=== PATIENT | female | born 1960 | race Caucasian/White ===

== ENCOUNTER 2017-07-08 03:41 | Inpatient (IN) | payer OTHER ==
[~2017-07-08] VITALS: Ht 152.4 cm; Wt 67.5 kg
--- NOTE | ~2017-07-08 | HC ---
[facility] [place] [address] CONSULTATION Name: PROSPER ANGLIN Room #: 312-P [facility] IN M.R.#: [id number] Admission: 07/08/17 Attend Phys: Radha Matthews Discharge: 07/09/17 Date of : 62 Report #: [id number] THIS REPORT FOR: //name// CC: Js Fraser MD [facility] Sloan Griffin BRIEF HISTORY: The patient is a 56-year-old woman who presents with atypical chest pain and transfer from [facility]. HISTORY OF PRESENT ILLNESS: This patient is known to Dr. Fraser and stents were placed about a year ago. She has developed increasing chest pain with a sensation of heaviness in her chest, radiating to her neck. She was seen by Dr. Fraser had cardiac catheterization, which revealed wide open stents without significant change in the past year. I spoke to him on the phone and he does not think this is cardiac in etiology. The patient has a history of GI problems. I do not get a history of definite reflux, but she does take omeprazole 40 mg daily. She also notes intermittent dysphagia for solids and occasionally for liquids. She did have an upper endoscopy in [place] earlier this year and she was told she had a hiatus hernia. PAST MEDICAL HISTORY: She had high blood pressure, chronic obstructive pulmonary disease and continues to smoke. She has a history of fibromyalgias. She has had radial keratotomy, milk duct excision secondary to mastitis in the past, hysterectomy and embolization of a cerebral aneurysm and asthma. ALLERGIES: CEPHALEXIN, TRAMADOL, QUESTIONABLY MORPHINE and SULFA. HOME MEDICATIONS: Include hydrocodone every 6-8 hours as needed, albuterol inhaler for shortness breath as needed, alprazolam 0.5 mg 3 times daily, aspirin 325 mg daily, atorvastatin 40 mg daily, vitamin B12 at 1000 mcg monthly, Prozac 20 mg daily, Flonase nasal spray daily, lisinopril 10 mg daily, loratadine 10 mg daily, meclizine 25 mg twice daily, nitroglycerin as needed, omeprazole 40 mg daily, Effient 10 mg daily, Inderal 20 mg twice daily, Topamax 150 mg b.i.d. and trazodone 150 mg at bedtime. FAMILY HISTORY: No family history of colon cancer. SOCIAL HISTORY: , lives with her . She continues to smoke at a rate of 2 packs per day and has done so for over 30 years. She drinks alcohol on occasion. REVIEW OF SYSTEMS: GENERAL: No change in weight. No fever or chills. CENTRAL NERVOUS SYSTEM: No weakness, numbness or loss of consciousness. She had an aneurysm clipped 10 years ago as she was having headaches [place] [address] CONSULTATION Name: PROSPER ANGLIN Room #: 312-P [facility] IN M.R.#: [id number] Admission: 07/08/17 Attend Phys: Radha Matthews Discharge: 07/09/17 Date of : 62 Report #: [id number] also had an aneurysm. PULMONARY: Problems with wheezing and asthma. She continues to smoke. CARDIOVASCULAR: Coronary artery disease with previous stents, stable cardiac catheterization. GASTROINTESTINAL: Chest pain. She also has bouts of diarrhea. PHYSICAL EXAMINATION: VITAL SIGNS: A well-developed, well-nourished, overweight woman in no acute distress. HEENT: Anicteric. Pupils equal and round. Oropharynx clear. NECK: Supple. CHEST: Good breath sounds. Few scattered wheezes. HEART: Regular rate and rhythm, S1 and S2. ABDOMEN: Overweight. Normal bowel sounds. Soft, nontender, without hepatosplenomegaly or masses. EXTREMITIES: Without cyanosis, clubbing or edema. LABORATORY DATA: White count of 4.2, hemoglobin of 10 and MCV of 97. Creatinine 0.9 and BUN of 12. Troponin less than 0.4. ASSESSMENT: 1. Atypical chest pain. 2. Chronic obstructive pulmonary disease, continues to smoke. 3. High blood pressure. 4. History of cerebral aneurysm, status post clipping. 5. Dysphagia for solids. 6. Anemia, normochromic. Note of recent colonoscopy, at which point, she was told she had polyps. PLAN: 1. Upper endoscopy to evaluate atypical chest pain. 2. Anemia, to follow up with her primary for further evaluation of that problem. 3. Esophageal dilation. 4. Follow up on ultrasound of the abdomen, which was obtained earlier today, but results are not yet available. <ELECTRONICALLY SIGNED> By: Mars Eubanks MD 07/10/17 1547 1225 1416 Mars Eubanks MD /nt
--- NOTE | ~2017-07-08 | S ---
[facility] [address] [place] [address] SURGICAL PATH RPT PROCEDURE Name: PROSPER ANGLIN Room #: 312-P [facility] IN M.R.#: [id number] Admission: 07/08/17 Date of : 62 Discharge: 07/09/17 Report #: [id number] Path Case #: [id number] PATHOLOGY REPORT DRAFT COLLECTION DATE: 07/09/2017 RECEIVED DATE: 07/09/2017 SPECIMEN(S) RECEIVED: A.Biopsies of gastritis-stomach
--- NOTE | ~2017-07-08 | P ---
[facility] [place] [address] PROCEDURE REPORT Name: PROSPER ANGLIN Room #: 312-P [facility] IN M.R.#: [id number] Admission: 07/08/17 Attend Phys: Radha Matthews Discharge: 07/09/17 Date of : 62 Report #: [id number] THIS REPORT FOR: //name// CC: Js Fraser MD [facility] Sloan Griffin BRIEF HISTORY: The patient is a 56-year-old woman with atypical chest pain. Cardiac cath today reveals that her previous placed stents are wide open. PREOPERATIVE DIAGNOSIS: Atypical chest pain. POSTOPERATIVE DIAGNOSES: 1. Diffuse erythematous gastritis. 2. Small hiatus hernia. 3. Dysphagia. MEDICATIONS: Deep sedation with propofol per anesthesia. SPECIMEN: Biopsies of gastritis. ESTIMATED BLOOD LOSS: 3 mL. PROCEDURE: EGD with biopsy and Melendrez dilation. FINDINGS: Prior to propofol sedation, procedure of upper endoscopy was discussed with the patient as well as potential risks, benefits, and complications. She indicates she understands and desires to proceed. With the patient in left lateral decubitus position, the [employer] video endoscope was inserted in the cervical esophagus under direct vision without difficulty. Examination of this organ through its entire length revealed normal esophageal mucosa throughout. No evidence of ulcers, erosions, or esophagitis. In addition, a small sliding type hiatus hernia was seen. Mucosa and hernia was unremarkable. Scope was advanced into the stomach, which was examined on end view as well as retroflexed views. There was a pattern of a diffuse gastritis. There was diffuse erythema. No ulcers or erosions were seen. Biopsies were obtained to evaluate for H. pylori. Upon retroflexion, the hiatus hernia was seen. No other abnormalities were identified. The pylorus, duodenal bulb, and postbulbar sweep were inspected and noted to be within normal limits. At that point, the scope was slowly withdrawn and careful circumferential views were obtained. The patient tolerated the procedure well. Subsequently, she was dilated with passage of a 52-[place] Melendrez dilator due to dysphagia. I did not see a stricture ring, but she was dilated based on symptoms. [facility] [address] [place] [address] PROCEDURE REPORT Name: PROSPER ANGLIN Room #: 312-P [facility] IN M.R.#: [id number] Admission: 07/08/17 Attend Phys: Radha Matthews Discharge: 07/09/17 Date of : 62 Report #: [id number] DISPOSITION: The patient with atypical chest pain. I spoke with Dr. Fraser who feels that her coronaries and stents are stable and this is not cardia in etiology. I do not find a definite lesion. However, she could have nonerosive reflux disease. She is currently taking omeprazole; we will have her continue using a PPI and she may take pantoprazole 40 mg twice daily for at least 4 weeks, if she is no better after 4 weeks, then reducing back to 1 daily would be appropriate. Discontinue smoking would be helpful as well. We will follow up on ultrasound of the gallbladder, which has been done, but not yet reported. Gallstone is the potential etiology of her atypical chest pain. If the ultrasound is negative, a PIPIDA scan would be consideration, potentially an outpatient. <ELECTRONICALLY SIGNED> By: Mars Eubanks MD 07/10/17 1547 1242 1432 Mars Eubanks MD /nt
--- NOTE | ~2017-07-08 | CATHLAB ---
[facility] [address] [place] [address] INVASIVE PROCEDURE REPORT Name: PROSPER ANGLIN Room #: 312-P ADM IN M.R.#: [id number] Admission: 07/08/17 Attend Phys: Radha Grajeda Discharge: Date of : 62 Date of Service: 07/09/17 1718 Report #: [id number] THIS REPORT FOR: //name// APPROVED REPORT Patient Details Patient Status: In-Patient Room #: 210 The patient is a 56 year-old female Event Personnel Js Fraser Truck Technician, Ines Ibarra RN RN, Yon Cruz RN, Jewels Sousa, Bryan Gonzalez Monitor Procedures Performed Left Heart Cath w/or w/o Coronaries [id number] [facility] Procedure Narrative The Right Groin^ was infiltrated with 1% Lidocaine subcutaneous anesthesia. A PINNACLE 6FR Sheath #[id number] sheath was inserted into the RFA^. Coronary angiography was performed using coronary diagnostic catheters. The right coronary system was accessed and visualized with a JR4 catheter. The left coronary system was accessed and visualized with a JL4 catheter. The left ventricle was accessed and visualized with a PIGTAIL catheter. Left ventriculogram was performed in 30 degree projection. An aortogram of the abdominal aorta was performed. Closure device was deployed with a 6 Fr MYNXGRIP 6/7F #[id number]. The patient tolerated the procedure well and there were no complications associated with the procedure. There was no hematoma. Intraoperative Conscious Sedation Sedation start time: 7:43 Case end Time: 7:53 Fentanyl 50 mcg Versed 1 mg Fluoro Time: 1.26 minutes Dose: 321 mGy Contrast Type and Amount: Omnipaque 125 ml Hemodynamics The aortic pressure is 143/52 mmHg with a mean of 55 mmHg. The left ventricular pressure is 149/14 mmHg with a mean of mmHg. The left ventricular end diastolic pressure is 27 mmHg. [facility] [place] [address] INVASIVE PROCEDURE REPORT Name: PROSPER ANGLIN Room #: 312-P [facility] IN M.R.#: [id number] Admission: 07/08/17 Attend Phys: Radha Grajeda Discharge: Date of : 62 Date of Service: 07/09/17 1718 Report #: [id number] Conclusion #1 normal left ventricular size and systolic function EF 60% #2 abdominal aorta with mildly ectatic mild calcificationof getting aneurysm or stenosis renal arteries are patent. #3 left main mildly disease giving rise to LAD and circumflex 4 LAD mild diffuse disease extends to the apex #5 small nondominant circumflex with mild disease #6 dominant right with an eccentric 3040% irregularities and then a proximal mid and mid distal stents widely patent diffuse disease distally no evidence for indication for intervention Recommendations and plan aggressive risk factor modification continue current therapy DC Effient patient is now one year post RCA stent placement. No lifting for 48 hours no line tub Jacuzzi or Ernst for a week. Recommend GI evaluation for either gastritis or possible gallbladder etiology of this pain. <ELECTRONICALLY SIGNED> By: Js Fraser MD, FACC 07/09/17 1718 17 17 Js Fraser MD, FACC /INF
--- NOTE | ~2017-07-08 | EKG ---
[place] [address] [facility] [place] [address] ELECTROCARDIOGRAM REPORT Name: PROSPER ANGLIN Room #: 312-P [facility] IN M.R.#: [id number] Admission: 07/08/17 Attend Phys: Radha Matthews Discharge: 07/09/17 Date of : 62 Report #: [id number] THIS REPORT FOR: //name// [facility] Test Date: 2017-07-09 Test Time: 06:38:03 Pat Name: PROSPER ANGLIN Department: Room: [facility] Gender: F Track Rider: EDWAR : 1960 Requested By: Js Fraser Order Number: [id number] MD: Octavio Carlin Measurements Intervals [place] Rate: 74 P: 63 ID: 196 QRS: 55 QRSD: 90 T: 34 QT: 378 QTc: 420 Interpretive Statements Sinus rhythm No significant abnormality Compared to ECG 05/02/2016 07:26:22 No significant change was found Electronically Signed On 07-10-2017 10:03:16 CDT by Octavio Carlin [email or web address] <ELECTRONICALLY SIGNED> By: Octavio Carlin MD, [facility] 07/10/17 1003 0638 Octavio Carlin MD, [facility] /EPI
--- NOTE | ~2017-07-08 | HC ---
[facility] [place] [address] CONSULTATION Name: PROSPER ANGLIN Room #: 312-P [facility] IN M.R.#: [id number] Admission: 07/08/17 Attend Phys: Radha Matthews Discharge: 07/09/17 Date of : 62 Report #: [id number] THIS REPORT FOR: //name// CC: Sloan Matthews DATE OF SERVICE: 07/08/2017 REASON FOR CONSULTATION: Acute coronary syndrome. HISTORY OF PRESENT ILLNESS: This is a very pleasant 56-year-old female patient who was transferred from [facility] for assessment and evaluation of chest discomfort. The patient has a history of coronary artery disease, having undergone stenting by Dr. Fraser approximately 1 year ago. She states that she noticed tightness and squeezing recently, which has resolved on its own and normalized. On the day of admission, she stated that this discomfort became more prominent and it remained longer than before. It also radiated up into her neck and into her teeth where the teeth itself were hurting. She stated that her jaw was also quite uncomfortable and she developed some shortness of breath, although no nausea, vomiting or palpitations. She states that she has no orthopnea symptoms. She stated these symptoms all have been initially with activity, but now has progressed to the point that this occurs intermittently while at rest. ALLERGIES: CEPHALEXIN, TRAMADOL, MORPHINE, SULFA. PAST MEDICAL HISTORY: Significant for: 1. Coronary artery disease as stated above. 2. Dyslipidemia. 3. Acid peptic disease. 4. Seasonal rhinitis and allergies. 5. COPD. MEDICATIONS: At home are aspirin, albuterol inhaler, loratadine, meclizine, vitamin B12, albuterol sulfate solution, fluticasone. SOCIAL HISTORY: The patient continues to smoke. Consumes alcohol socially. Does not follow particular exercise regimen or dietary restriction. PAST MEDICAL HISTORY: Significant for: 1. Hypertension. 2. COPD. 3. Fibromyalgia. PAST SURGICAL HISTORY: 1. Embolization of cerebral aneurysm. [facility] [address] [place] [address] CONSULTATION Name: PROSPER ANGLIN Room #: 312-P [facility] IN M.R.#: [id number] Admission: 07/08/17 Attend Phys: Radha Matthews Discharge: 07/09/17 Date of : 62 Report #: [id number] 2. Radial keratotomy. 3. Milk duct excision secondary to mastitis 20 years ago. 4. Hysterectomy. She states she has REVIEW OF SYSTEMS: Except for the symptoms previously mentioned and those commensurate with comorbid state, the 10-point review of systems is negative. ELECTROCARDIOGRAM: Normal sinus rhythm, nonspecific ST-T wave changes. PHYSICAL EXAMINATION: GENERAL: Well-developed, well-nourished female resting comfortably in no acute distress. VITAL SIGNS: Noted and reviewed in the chart. HEENT: Normocephalic, atraumatic. Pupils are equal, round, reactive to light and accommodation. Extraocular muscles are intact. Sclerae and conjunctivae are anicteric. NECK: JVD is normal. Carotid upstrokes are bilaterally symmetrical. No bruits are heard. No thyromegaly. No lymphadenopathy. LUNGS: Clear to auscultation. No wheezes, rhonchi or crackles. No CVA tenderness. CARDIAC: Demonstrates a regular rhythm. Normal first and second heart sounds. No ventricular or atrial gallops, no rubs noted. No murmurs. No lifts or heaves, PMI normal. ABDOMEN: Soft, nontender, nondistended. Normal bowel sounds. EXTREMITIES: Without cyanosis, clubbing or edema. Distal pulses are intact. DTR symmetrical. NEUROLOGIC: Cranial nerves 2-12 are grossly normal and symmetrical. PSYCHIATRIC: Alert, oriented with normal affect. SKIN: Warm and dry. IMPRESSION: 1. Chest discomfort which is quite suspicious for an anginal equivalent. As she does have an increased risk based on those statements previously mentioned and in view of this, we are going to proceed directly to angiography in the a.m. The risks, complications, and alternatives to cath, angioplasty and conscious sedation were discussed with the patient. She voices understanding and wishes to proceed. 2. Dyslipidemia. Discussed [place] [employer] step-1 diet with her. She does voice understanding. 3. Tobacco abuse and dependence. I discussed the issues with smoking and early stent closure. She does seem to understand, but states it is quite difficult [address] [address] CONSULTATION Name: JUAN PABLOEdgarPROSPER Room #: 312-P [facility] IN M.R.#: [id number] Admission: 07/08/17 Attend Phys: Radha Matthews Discharge: 07/09/17 Date of : 62 Report #: [id number] and we sat down and delineated several methods and techniques that would optimize her smoking cessation. <ELECTRONICALLY SIGNED> By: Guillermo Barron MD 07/10/17 1315 2344 0159 Guillermo Barron MD /nt
[~2017-07-08 03:41] MED LIST: ACETAMINOPHEN-1 EAC1 PO; ALBUTEROL2.5 MG/31 INH; ANTIPYRINE-BENZOCAIN; ANTIVERT25 MG PO; ASPIRIN325 PO; ATORVASTATIN CA40 MG PO; B12INJ IM; EFFIENT10 MG PO; FLONASE 0.05%50 MCG NASAL; HYDROCODONE-AP1 EAC6 PO; LORATIDINE 10 M10 M1 PO; METOPROLOL SUCC25 M1 PO; NITROGLYCERIN0.4 MG SUBLING; OMEPRAZOLE40 MG PO; PROAIR RESPICL90 MCG IH; PROPRANOLOL 1010 MG PO; PROZAC20 MG PO; TOPAMAX 100 MG100 MG PO; TRAZODONE HCL50 MG PO; VITAMIN D250000 UNIT PO; XANAX 0.5 MG0.5 MG PO; ZESTRIL10 MG PO
[2017-07-08 08:50] VITALS: BP 126/64
[2017-07-08 09:10] LABS: HEMATOCRIT 35.8 % (37.0-47.0); HEMOGLOBIN 11.7 gm/dL (12.0-15.0); MCH 31.9 pg (26.0-34.0); MCHC 32.7 g/dL (28.0-37.0); MCV 97.7 fL (80.0-100.0); RBC 3.66 mil/uL (4.20-5.00); RDW 13.1 % (10.5-14.5); WBC 5.4 thou/uL (4.0-11.0)
[2017-07-08 09:20] LABS: ANION GAP 8 mmol/L (7-16); BUN 15 mg/dL (7-18); CALCIUM 8.2 mg/dL (8.5-10.1); CHLORIDE 108 mmol/L (98-107); CO2 28 mmol/L (21-32); CREATININE 1.2 mg/dL (0.6-1.0); GLUCOSE 87 mg/dL (74-106); POTASSIUM 3.9 mmol/L (3.5-5.1); SODIUM 144 mmol/L (136-145)
[2017-07-08 09:28] LABS: TROPONIN-I < 0.04 ng/mL (<0.04-0.07)
[2017-07-08 11:45] VITALS: BP 107/52
[2017-07-08] MEDS ORDERED: ACETAMINOPHEN-1 EAC1 PO (12:51)
[2017-07-08 15:47] VITALS: BP 115/56
[2017-07-08 19:59] VITALS: BP 126/76
[2017-07-08 23:35] VITALS: BP 116/51
[2017-07-09] VITALS (9 sets, daily range): BP systolic 102–153; BP diastolic 42–74
[2017-07-09 06:15] LABS: HEMATOCRIT 30.2 % (37.0-47.0); MCH 32.1 pg (26.0-34.0); MCV 97.1 fL (80.0-100.0); RBC 3.11 mil/uL (4.20-5.00); RDW 13.1 % (10.5-14.5); WBC 4.2 thou/uL (4.0-11.0)
[2017-07-09 06:27] LABS: ANION GAP 6 mmol/L (7-16); BUN 12 mg/dL (7-18); CALCIUM 7.6 mg/dL (8.5-10.1); CHLORIDE 109 mmol/L (98-107); CHOLESTEROL 136 mg/dL (<200); CO2 24 mmol/L (21-32); CREATININE 0.9 mg/dL (0.6-1.0); GLUCOSE 96 mg/dL (74-106); HDL CHOLESTEROL 50 mg/dL (>40); LDL CHOLESTEROL 67 mg/dL (<100); POTASSIUM 3.9 mmol/L (3.5-5.1); SODIUM 139 mmol/L (136-145); TC:HDL 2.7 Ratio (Not establshd); TRIGLYCERIDE 96 mg/dL (<150); TROPONIN-I < 0.04 ng/mL (<0.04-0.07); VLDL 19 mg/dL (<40)
[2017-07-09] MEDS ORDERED: PROTONIX40 M1 PO (16:51)
== END 2017-07-09 18:30 | disposition home or self-care (01) | DRG 391 ==
LOC: 2N 03:41 → 3N 07-09 13:27
PROVIDERS: Hospitalist
DX: K29.70 Gastritis, unspecified, without bleeding (principal); I21.4 Non-ST elevation (NSTEMI) myocardial infarction; I24.9 Acute ischemic heart disease, unspecified; K44.9 Diaphragmatic hernia without obstruction or gangrene; I25.10 Atherosclerotic heart disease of native coronary artery without angina pectoris; I10 Essential (primary) hypertension; J44.9 Chronic obstructive pulmonary disease, unspecified; F17.210 Nicotine dependence, cigarettes, uncomplicated; D64.9 Anemia, unspecified; E78.00 Pure hypercholesterolemia, unspecified; J30.2 Other seasonal allergic rhinitis; E78.5 Hyperlipidemia, unspecified; Z90.710 Acquired absence of both cervix and uterus; Z95.5 Presence of coronary angioplasty implant and graft; Z88.8 Allergy status to other drugs, medicaments and biological substances
CPT/HCPCS: 10081; 62110; 62900; 70005

== ENCOUNTER 2018-02-20 10:16 | Emergency (ER) | payer OTHER ==
[~2018-02-20] VITALS: Ht 152.4 cm; Wt 56.7 kg
[~2018-02-20 10:16] MED LIST changes: +PROTONIX40 M1 PO
[2018-02-20] MEDS ORDERED: XANAX 0.5 MG0.5 MG PO (10:46)
[2018-02-20] MEDS ORDERED: ZANAFLEX4 MG PO (10:46)
[2018-02-20] MEDS ORDERED: BUTRANS1 EAC1 TRANSDERM (10:46)
[2018-02-20] MEDS ORDERED: COZAAR 50 MG TA50 M2 PO (10:46)
[2018-02-20] MEDS ORDERED: PERCOCET 5-3251 EACH PO (10:47)
[2018-02-20] MEDS ORDERED: MS CONTIN15 MG PO (11:53)
== END 2018-02-20 12:39 | disposition home or self-care (01) ==
LOC: ER 10:16
DX: M54.12 Radiculopathy, cervical region (principal); M25.511 Pain in right shoulder; I10 Essential (primary) hypertension; J44.9 Chronic obstructive pulmonary disease, unspecified; M79.7 Fibromyalgia; F17.210 Nicotine dependence, cigarettes, uncomplicated; Z88.1 Allergy status to other antibiotic agents; Z88.6 Allergy status to analgesic agent

== ENCOUNTER → 2020-01-12 | Outpatient (CLI) | payer OTHER ==
[~2020-01-12] MED LIST changes: +BUTRANS1 EAC1 TRANSDERM; +COZAAR 50 MG TA50 M2 PO; +MS CONTIN15 MG PO; +PERCOCET 5-3251 EACH PO; +ZANAFLEX4 MG PO
== END ==
LOC: SJCVC 12:35
DX: R94.31 Abnormal electrocardiogram [ECG] [EKG] (principal); I10 Essential (primary) hypertension; I25.10 Atherosclerotic heart disease of native coronary artery without angina pectoris; E78.00 Pure hypercholesterolemia, unspecified; I65.23 Occlusion and stenosis of bilateral carotid arteries; Z72.0 Tobacco use; Z79.82 Long term (current) use of aspirin; Z79.899 Other long term (current) drug therapy

== ENCOUNTER → 2020-06-18 | Outpatient (CLI) | payer OTHER | LOC: SJCVC 12:08 → SJCVCIMAG 12:08 | PROVIDERS: ATTEND Internal Medicine Cardiovascular Disease | DX: I08.3 Combined rheumatic disorders of mitral, aortic and tricuspid valves (principal); I11.9 Hypertensive heart disease without heart failure; R94.31 Abnormal electrocardiogram [ECG] [EKG]; I25.10 Atherosclerotic heart disease of native coronary artery without angina pectoris; E78.00 Pure hypercholesterolemia, unspecified; J44.9 Chronic obstructive pulmonary disease, unspecified; I73.9 Peripheral vascular disease, unspecified; I25.2 Old myocardial infarction; F17.210 Nicotine dependence, cigarettes, uncomplicated; Z79.899 Other long term (current) drug therapy; Z82.49 Family history of ischemic heart disease and other diseases of the circulatory system ==

== ENCOUNTER → 2020-06-23 | Outpatient (CLI) | payer OTHER | LOC: SJCVCIMAG 06:37 | PROVIDERS: ATTEND Internal Medicine Cardiovascular Disease | DX: R07.9 Chest pain, unspecified (principal); R06.00 Dyspnea, unspecified; I25.10 Atherosclerotic heart disease of native coronary artery without angina pectoris; I10 Essential (primary) hypertension; E78.5 Hyperlipidemia, unspecified; F17.200 Nicotine dependence, unspecified, uncomplicated; Z98.61 Coronary angioplasty status ==

== ENCOUNTER → 2020-09-24 | Outpatient (CLI) | payer OTHER | LOC: SJCVC 10:00 | PROVIDERS: ATTEND Internal Medicine Cardiovascular Disease | DX: R94.31 Abnormal electrocardiogram [ECG] [EKG] (principal); I25.10 Atherosclerotic heart disease of native coronary artery without angina pectoris; I77.9 Disorder of arteries and arterioles, unspecified; I48.91 Unspecified atrial fibrillation; E78.00 Pure hypercholesterolemia, unspecified; I10 Essential (primary) hypertension; J44.9 Chronic obstructive pulmonary disease, unspecified; F17.210 Nicotine dependence, cigarettes, uncomplicated; Z79.899 Other long term (current) drug therapy ==

== ENCOUNTER 2021-01-18 11:56 | Emergency (ER) | payer OTHER ==
[~2021-01-18] VITALS: Ht 152.4 cm; Wt 69.0 kg
[~2021-01-18 11:56] MED LIST changes: -DOXYCYCLINE 10100 MG PO
[2021-01-18 12:56] LABS: URINE BILIRUBIN NEGATIVE (Negative); URINE BLOOD NEGATIVE (Negative); URINE CLARITY CLEAR; URINE COLOR YELLOW; URINE GLUCOSE-RANDOM* NEGATIVE (Negative); URINE KETONES NEGATIVE (Negative); URINE LEUKOCYTES-REFLEX NEGATIVE (Negative); URINE NITRITE-REFLEX NEGATIVE (Negative); URINE PROTEIN (DIPSTICK) NEGATIVE (Negative); URINE UROBILINOGEN 0.2 E.U./dl (0.2-1.0)
[2021-01-18 13:07] LABS: ANION GAP 10 mmol/L (7-16); BASOPHILS 0.8 % (0.0-2.0); BUN 11 mg/dL (7-18); CALCIUM 8.6 mg/dL (8.5-10.1); CHLORIDE 103 mmol/L (98-107); CO2 26 mmol/L (21-32); CREATININE 1.2 mg/dL (0.6-1.0); EOSINOPHILS 1.4 % (0.0-3.0); GLUCOSE 95 mg/dL (74-106); HEMATOCRIT 35.5 % (37.0-47.0); HEMOGLOBIN 11.8 gm/dL (12.0-15.0); LYMPHOCYTES 23.1 % (24.0-44.0); MCH 28.7 pg (26.0-34.0); MCHC 33.1 g/dL (28.0-37.0); MCV 86.6 fL (80.0-100.0); MONOCYTES 6.4 % (1.0-8.0); PLATELET COUNT 314 thou/uL (150-400); POLYS 68.3 % (36.0-66.0); POTASSIUM 4.5 mmol/L (3.5-5.1); RDW 16.5 % (10.5-14.5); SODIUM 139 mmol/L (136-145); WBC 7.3 thou/uL (4.0-11.0)
[2021-01-18 13:18] LABS: ALBUMIN 3.6 g/dL (3.4-5.0); DIRECT BILIRUBIN < 0.1 mg/dL (<0.1-0.2); LIPASE 75 U/L (73-393); SGOT 18 U/L (15-37); SGPT 17 U/L (14-59); TOTAL BILIRUBIN 0.3 mg/dL (0.2-1.0); TOTAL PROTEIN 6.8 g/dL (6.4-8.2); TROPONIN-I <0.06 ng/mL (<0.06)
[2021-01-18] MEDS ORDERED: DOXYCYCLINE 10100 MG PO (15:04)
[2021-01-18 15:19] VITALS: BP 132/58
--- NOTE | 2021-01-18 15:27 | EKG ---
[address] [address] ELECTROCARDIOGRAM REPORT Name: PROSPER ANGLIN [facility] [id number] Admission: 01/18/21 Attend Phys: Discharge: 01/18/21 Date of : 62 Report #: [id number] [facility] ED Test Date: 2021-01-18 Test Time: 13:25:11 Pat Name: PROSPER ANGLIN Department: Room: Gender: F Piece Dyer: kf : 1960 Requested By: Phuc Valencia Order Number: [id number] MD: Adis Dejesus Measurements Intervals [place] Rate: 81 P: 78 OR: 178 QRS: 74 QRSD: 87 T: 65 QT: 379 QTc: 440 Interpretive Statements Sinus rhythm Compared to ECG 07/09/2017 06:38:03 No significant changes Electronically Signed On 01-18-2021 15:27:38 ASSISTANT BUYER by Adis Dejesus [email or web address] <ELECTRONICALLY SIGNED> By: Adis Dejesus MD, [facility] 01/18/21 1527 1325 1325 Adis Dejesus MD, FACC /EPI
== END 2021-01-18 15:21 | disposition home or self-care (01) ==
LOC: ER 11:56
PROVIDERS: Nurse Practitioner
DX: J44.1 Chronic obstructive pulmonary disease with (acute) exacerbation (principal); I10 Essential (primary) hypertension; J44.9 Chronic obstructive pulmonary disease, unspecified; Z90.710 Acquired absence of both cervix and uterus; F17.210 Nicotine dependence, cigarettes, uncomplicated; Z79.82 Long term (current) use of aspirin; Z79.899 Other long term (current) drug therapy; Z88.8 Allergy status to other drugs, medicaments and biological substances; Z20.822 Contact with and (suspected) exposure to COVID-19

== ENCOUNTER → 2021-01-18 | Outpatient (CLI) | payer OTHER ==
[~2021-01-18] MED LIST changes: +DOXYCYCLINE 10100 MG PO
== END ==
LOC: CAT 01-04 16:00
PROVIDERS: ATTEND Internal Medicine
DX: Z12.2 Encounter for screening for malignant neoplasm of respiratory organs (principal); J84.10 Pulmonary fibrosis, unspecified; I25.10 Atherosclerotic heart disease of native coronary artery without angina pectoris; Z87.891 Personal history of nicotine dependence

== ENCOUNTER 2021-02-13 17:27 | Inpatient (IN) | payer OTHER ==
[~2021-02-13] VITALS: Ht 152.4 cm; Wt 78.6 kg
[~2021-02-13 17:27] MED LIST changes: +DOXYCYCLINE 10100 MG PO
[2021-02-13 20:46] VITALS: BP 104/42
[2021-02-13] MEDS ORDERED: NEURONTIN600 MG PO (21:14)
[2021-02-13] MEDS ORDERED: LOPRESSOR50 MG PO (21:16)
[2021-02-13 21:17] LABS: HEMATOCRIT 33.3 % (37.0-47.0); HEMOGLOBIN 10.8 gm/dL (12.0-15.0); MCHC 32.3 g/dL (28.0-37.0); MCV 86.7 fL (80.0-100.0); RBC 3.84 mil/uL (4.20-5.00); RDW 16.5 % (10.5-14.5); WBC 7.4 thou/uL (4.0-11.0)
[2021-02-13] MEDS ORDERED: PROZAC20 MG PO (21:17)
[2021-02-13] MEDS ORDERED: MELOXICAM15 MG PO (21:18)
[2021-02-13] MEDS ORDERED: OMEPRAZOLE40 MG PO (21:20)
[2021-02-13] MEDS ORDERED: SYMBICORT160 MCG/4. INH (21:23)
[2021-02-13] MEDS ORDERED: OXYBUTYNIN CHLO10 MG PO (21:25)
[2021-02-13] MEDS ORDERED: NORVASC5 MG PO (21:28)
[2021-02-13] MEDS ORDERED: ROSUVASTATIN CA20 MG PO (21:29)
[2021-02-13 21:30] LABS: PROTIME 10.7 Seconds (9.3-11.4)
[2021-02-13] MEDS ORDERED: MOTION SICKNESS25 M4 PO (21:31)
[2021-02-13] MEDS ORDERED: BREZTRI AEROS10.7 GM INH (21:35)
[2021-02-13 23:42] VITALS: BP 104/41
[2021-02-14] VITALS (17 sets, daily range): BP systolic 98–152; BP diastolic 35–65
[2021-02-14 03:45] LABS: HEMATOCRIT 31.9 % (37.0-47.0); MCH 27.8 pg (26.0-34.0); MCHC 31.5 g/dL (28.0-37.0); MCV 88.3 fL (80.0-100.0); RBC 3.61 mil/uL (4.20-5.00); RDW 16.9 % (10.5-14.5); WBC 5.6 thou/uL (4.0-11.0)
[2021-02-14 03:57] LABS: ANION GAP 4 mmol/L (7-16); BUN 27 mg/dL (7-18); CALCIUM 8.1 mg/dL (8.5-10.1); CHLORIDE 104 mmol/L (98-107); CO2 30 mmol/L (21-32); CREATININE 1.7 mg/dL (0.6-1.0); GLUCOSE 107 mg/dL (74-106); POTASSIUM 4.8 mmol/L (3.5-5.1); SODIUM 138 mmol/L (136-145)
[2021-02-14 04:06] LABS: TROPONIN-I <0.06 ng/mL (<0.06)
--- NOTE | 2021-02-14 04:31 | NUR ---
ADMITTED PER EMS FROM [facility] AT 2030. STATES CHEST PAIN HAS CONTINUED SINCE 1400 TODAY RATING 4-8. CHEST PAIN AT PRESENT 06/04. EMS STATED REMOVED NTG PASTE DUE TO LOW BP. LIZETTE EXECUTIVE CHAIRMAN NOTIFIED OF ARRIVAL AND ORDERS TO CONTINUE HEPARING GTT GIVEN. HEPARIN GTT RESTARTED PER PROTOCOL. UP WITH STANDBY ASSIST. ADMISSION PROCESS INITIATED AND COMPLETED. DR. ZHENG CONSULT CALLED AT 2255. ORDERS FOR IVF, GI COCKTAIL AND NTG PASTE RECIEVED AND IMPLEMENTED. ORIENTED TO ROOM AND FLOOR POLICIES. EXECUTIVE CHAIRMAN HERE AT 2130. 0130 PATIENT ASSISTED TO BSC AND VOIDED 190CC, BLADDER SCAN POST VOID SHOWN 27CC. NPO PAST MN FOR CARD WORKUP. 0200 MORPHINE 2MG GIVEN FOR CONTINUED CHEST PAIN. 0230 PATIENT SLEEPING WITHOUT PRESENT COMPLAINTS. CONTINUE TO ASSES CLOSELY. 0435 PATIENT REMAINS SLEEPING WITHOUT PRESENT COMPLAINTS AT THIS TIME. WORKING ON GOALS AND PLAN OF CARE FOR NOC. CONTINUE TO ASSES CLOSELY.
--- NOTE | 2021-02-14 06:42 | NUR ---
NOTIFIED CHIEF SUSTAINABILITY OFFICER OF URINE OUTPUT. NO NEW ORDERS. PATIENT SLEEPING WITHOUT PRESENT COMPLAINTS OF PAIN.
--- NOTE | 2021-02-14 07:26 | EKG ---
[address] [address] ELECTROCARDIOGRAM REPORT Name: PEACE ANGLININ AIDA Room #: 211- ADM IN M.R.#: [id number] Admission: 02/13/21 Attend Phys: Tiff Bui MD Discharge: Date of : 62 Report #: [id number] [facility] Test Date: 2021-02-13 Test Time: 22:01:47 Pat Name: PROSPER ANGLIN Department: Room: 211 P Gender: F Senior Software Engineer: JOHANN CONTE RN : 1960 Requested By: Mariel Vegas Order Number: [id number] MD: Adis Dejesus Measurements Intervals [place] Rate: 51 P: 61 [place]: 190 QRS: 49 QRSD: 93 T: 40 QT: 473 QTc: 436 Interpretive Statements Sinus rhythm Compared to ECG 01/18/2021 13:25:11 No significant changes Electronically Signed On 02-14-2021 7:26:17 CDT by Adis Dejesus [email or web address] <ELECTRONICALLY SIGNED> By: Adis Dejesus MD, [facility] 02/14/21725 00 00 Adis Dejesus MD, FACC /EPI
[2021-02-14 08:30] LABS: CHOLESTEROL 143 mg/dL (<200); HDL CHOLESTEROL 61 mg/dL (>40); LDL CHOLESTEROL 68 mg/dL (<100); TC:HDL 2.3 Ratio (Not establshd); TRIGLYCERIDE 70 mg/dL (<150); VLDL 14 mg/dL (<40)
--- NOTE | 2021-02-14 09:45 | 2DMMODE ---
[facility] [place] [address] 2 D/M-MODE ECHOCARDIOGRAM Name: PROSPER ANGLIN Room #: 211-P ADM IN M.R.#: [id number] Admission: 02/13/21 Attend Phys: Tiff Bui MD Discharge: Date of : 62 Report #: [id number] THIS REPORT FOR: cc: Sloan Flores James L. DO Park, Jin S. MD ~ APPROVED REPORT Study performed: 02/14/2021 08:11:38 EXAM: Comprehensive 2D, Doppler, and color-flow Echocardiogram Patient Location: Bedside Room #: 211 Status: routine BSA: 1.74 HR: 60 bpm BP: 137/63 mmHg Rhythm: NSR Other Information Study Quality: Adequate Indications Unstable angina. Hx: CAD, stents, COPD, HTN, HLP. 2D Dimensions RVDd: 28.94 mm IVSd: 8.76 (7-11mm) LVOT Diam: 18.04 (18-24mm) LVDd: 9.13 mm PWd: 8.70 (7-11mm) LVDs: 27.77 (25-40mm) Aortic Root: 28.08 mm Volumes Left Atrial Volume (Systole) Single Plane 4CH: 52.34 mL Single Plane 2CH: 55.35 mL LA ESV Index: 34.00 mL/m2 Aortic Valve AoV Peak Mayank.: 1.99 m/s AO Peak Gr.: 15.78 mmHg LVOT Max P.33 mmHg LVOT Max V: 1.35 m/s RJ Vmax: 1.74 cm2 [facility] [address] [place] [address] 2 D/M-MODE ECHOCARDIOGRAM Name: PROSPER ANGLIN Room #: 211-P [facility] IN ..#: [id number] Admission: 02/13/21 Attend Phys: Tiff Bui, Discharge: Date of : 62 Report #: [id number] AI Vmax: 2.96 m/s AI Kent: 1.53 m/s2 AI PHT: 559.29 ms Mitral Valve E/A Ratio: 0.9 MV Decel. Time: 274.32 ms MV E Max Mayank.: 1.00 m/s MV A Mayank.: 1.14 m/s MV PHT: 79.55 ms IVRT: 83.04 ms Pulmonary Valve PV Peak Mayank.: 1.18 m/s PV Peak Gr.: 5.60 mmHg Pulmonary Vein P Vein S: 0.61 m/s P Vein A: 0.36 m/s P Vein D: 0.57 m/s P Vein A Dur.: 156.9 msec P Vein S/D Ratio: 1.07 Tricuspid Valve TR Peak Mayank.: 2.86 m/s RAP Estimate: 5.00 mmHg TR Peak Gr.: 33.00 mmHg PA Pressure: 38.00 mmHg Left Ventricle The left ventricle is normal size. There is normal LV segmental wall motion. There is normal left ventricular wall thickness. Left ventricular systolic function is normal. LVEF is 60-65%. Mild diastolic dysfunction is present (impaired relaxation pattern). Right Ventricle The right ventricle is normal size. The right ventricular systolic function is normal. Atria Left atrium is at the upper limits of normal. The right atrium size is normal. Aortic Valve Aortic valve is mildly calcified. Mild aortic regurgitation. There is no aortic valvular stenosis. Mitral Valve The mitral valve is normal in structure. Trace mitral [facility] [address] [place] [address] 2 D/M-MODE ECHOCARDIOGRAM Name: PROSPER ANGLIN Room #: 211-P ADM IN M.R.#: [id number] Admission: 02/13/21 Attend Phys: Tiff Bui, Discharge: Date of : 62 Report #: [id number] regurgitation. Tricuspid Valve The tricuspid valve is normal in structure. Mild tricuspid regurgitation. Estimated PAP is 35-40mmHg. Pulmonic Valve Pulmonic valve is not well visualized. Trace pulmonic regurgitation. Great Vessels The aortic root is normal in size. IVC is normal in size and collapses >50% with inspiration. Pericardium There is no pericardial effusion. <Conclusion> The left ventricle is normal size. There is normal left ventricular wall thickness. Left ventricular systolic function is normal. Mild diastolic dysfunction is present (impaired relaxation pattern). The right ventricle is normal size. Left atrium is at the upper limits of normal. Mild aortic regurgitation. Trace mitral regurgitation. Mild tricuspid regurgitation. Estimated PAP is 35-40mmHg. <ELECTRONICALLY SIGNED> By: Matthew Alberts MD 02/14/2145 4 4 Matthew Alberts MD /INF
--- NOTE | 2021-02-14 15:09 | NUR ---
CONSULT [id number] WAS NOT ABLE TO BE COMPLETED TODAY TH EPATIENT WAS HAVING A MEDICAL PROCEDURE WHEN THIS PRODUCTION TEAM ADVISOR ENTERED THE ROOM. THIS PRODUCTION TEAM ADVISOR WILL ATTEMPT TO SEE HER TOMORROW.
--- NOTE | 2021-02-14 16:16 | EKG ---
[address] [address] ELECTROCARDIOGRAM REPORT Name: PEACE ANGLININ AIDA Room #: 211- ADM IN M.R.#: [id number] Admission: 02/13/21 Attend Phys: Tiff Bui MD Discharge: Date of : 62 Report #: [id number] [facility] Test Date: 2021-02-14 Test Time: 09:02:45 Pat Name: PROSPER ANGLIN Department: Room: 211 P Gender: F Loom Setter: HARLEY : 1960 Requested By: Lorenzo Muse Order Number: [id number] MD: Adis Dejesus Measurements Intervals [place] Rate: 59 P: 52 DC: 189 QRS: 54 QRSD: 88 T: 33 QT: 406 QTc: 403 Interpretive Statements Sinus rhythm Compared to ECG 02/13/2021 22:01:47 No significant changes Electronically Signed On 02-14-2021 16:16:25 CDT by Adis Dejesus [email or web address] <ELECTRONICALLY SIGNED> By: Adis Dejesus MD, [facility] 02/14/21 1616 09 1 Adis Dejesus MD, FACC /EPI
--- NOTE | 2021-02-14 20:49 | NUR ---
RECEIVED PT'S CARE AROUND 07; PT. ON BED; ALERT; C/O CP; 10; JESSICA REID ROUNDING; SR ON THE MONITOR; PER ORDER MANAGEMENT SPECIALIST OK TO GIVE MORPHINE PRN; MEDICATION GIVEN; REASSESSMENT PT. ST. NOT DECREASE PAIN; PRN NITRO GIVEN; REASSESSMENT DECREASE CP; C/O LIGHT HEADACHE; BP WNL; EKG SR; 02 SAT ON THE 82%; TITRATE 02 TO 5L; 91%; PHYSICIAN NOTIFIED; DURING AM ASSESSMENT PT. AOX4; AM MEDICATIONS GIVEN; EDUCATED ABOUT REPORT CP IMMEDIATELY IF INCREASING OR CHANGE; ST. UNDERSTANDING; ABLE TO REST WITH EYES CLOSED DURING THE AFTERNOON; PER JESSICA REID PT. SCHEDULED TO HAVE CARDIAC CATH NEXT DAY 02/14/21; OK TO RESUME DIET; PORTER SAMPLE CASE ST. MENDES; COMMUNICATED DR. ANTHONY CONCERNS ABOUT POSSIBLE PE; [place] UNDERSTANDING; ORDERS ON PLACED; NEW IV STARTED OVER LEFT AC; GONE FOR CT SCAN; ABLE TO TOLERATE LUNCH; DURING THE EVENING PT'S BP BELOW 100; C/O CP 07/05; ST. "IT FEELS LIKE I FELT WHEN I WENT TO THE HOSPITAL"; EKG AND TROPONIN ORDERED PER PROTOCOL; JESSICA REID NOTIFIED; HERMAN PIKE ORDERD; AFTER A FEW MINUTES RECEIVED CALL FROM JESSICA REID ST. PT. GOING FOR CARDIAC CATH THIS AFTERNOON; CONSENT SIGNED; PT. TAKE TO CARDIAC CATH CLOSE 1700; BACK FROM PROCEDURE CLOSE TO 1800; R. GROIN INCISION; NO HEMATOMA NOTICED; PER RENETTA MURPHY REQUESTED ANGEL INSERTION; ANGEL INSERTED WITH RENETTA RN ASSISTANCE; PER RENETTA RN REPORTED HOLD FLUIDS AND HEPARING GTT; MEDICATION NOT RESTARTED; PT. EDUCATED ABOUT BED REST; MANTAIN LEG STRAIGH; HOLD PRESSURE WHEN COUGHING; ST. UNDERSTANDING; VS WNL; SR ON THE MONITOR; ASSESSMENT CHARGED; FOLLOWING POC; PASSED ON REPORT;
[2021-02-15] VITALS: BP 126/55
--- NOTE | 2021-02-15 02:16 | NUR ---
2000 COMPLAINTS OF ANGEL HURTING. DEFLATED BALLOON, PUSHED IN FURTHER, REINFLATED BALLOON AND SECURED TO LEG. WARM WASH CLOTH PLACED TO AREA. STATES IS BETTER. PUTTING OUT LARGE AMOUNT OF URINE PER ANGEL. 0001 PATIENT WITH MORE SHORTNESS OF AIR. PULLED UP AND REPOSITIONED. O2 SAT 85% PM 3L/NC. INCREASED TO 5L/NC AND RT CALLED FOR TREATMENT. LUNG SOUNDS WITH WHEEZES UPPER LOBES AND CRACKLES IN BASES. 0100 INSIDE POLISHER NOTIFIED OF CHANGES AND INCREASE OF O2 TO 6L/NC. LASIX 20 MG ORDERED AND GIVEN. O2 SAT 92% 0200 BREATHING A LITTLE BETTER PER PATIENT. O2 SAT NOW 94% on 6L/NC. COMPLAINTS OF ANGEL HURTING AT INSERTION SITE AGAIN. NOTIFIED INSIDE POLISHER AND ORDERS FOR LIDOCAINE JELLY TO SITE. APPLIED WITH RELIEF TO PATIENT. 0230 RESTING QUIETLY AT THIS TIME. CONTINUE TO ASSES CLOSELY.
[2021-02-15 04:05] VITALS: BP 131/49
[2021-02-15 04:39] LABS: HEMATOCRIT 33.6 % (37.0-47.0); HEMOGLOBIN 10.6 gm/dL (12.0-15.0); MCH 27.4 pg (26.0-34.0); MCHC 31.6 g/dL (28.0-37.0); MCV 86.7 fL (80.0-100.0); RBC 3.88 mil/uL (4.20-5.00); RDW 16.1 % (10.5-14.5)
[2021-02-15 04:54] LABS: CALCIUM 8.5 mg/dL (8.5-10.1); CREATININE 1.4 mg/dL (0.6-1.0); POTASSIUM 4.4 mmol/L (3.5-5.1)
--- NOTE | 2021-02-15 07:27 | EKG ---
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
--- NOTE | 2021-02-15 07:57 | NUR ---
0600 STATES HAS BEEN SLEEPING. STATES BREATHING IS EASIER. 2950 CC URINE OUTPUT THIS SHIFT. NO FURTHER PAIN AT ANGEL INSERTION SITE. WORKING ON GOALS AND PLAN OF CARE FOR NOC. NOT PROGRESSING TOWARDS DISCHARGE GOALS. REMAINS ON 6L/NC WITH O2 SAT 95%. 0620 DR PATRICIA NOTIFIED OF RESPIRATORY STATUS. ORDERS FOR PORTABLE CHEST XRAY THIS AM. CONTINUE TO ASSES CLOSELY.
[2021-02-15 08:00] VITALS: BP 133/40
[2021-02-15 12:15] VITALS: BP 131/42
[2021-02-15 16:00] VITALS: BP 148/50
--- NOTE | 2021-02-15 17:27 | NUR ---
met with patient who transferred to [facility] from [place] with [facility]. Patient resides with family in home with 3 steps. 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 She is on disability. PCP Dr Sloan Flores. She is rec oxygen and she does not use at home. Patient reports she has cramping pain all over in legs, hands, sides. She hopes to determine what is causing the pain. Casemgt following for dc planning.
--- NOTE | 2021-02-15 17:45 | NUR ---
ASSUMED CARE OF PT AT SHIFT CHANGE. ASSESSMENTS CHARTED. MEDS GIVEN PER JAN. PT A&OX4, C/O PAIN TREATED WITH IV MEDS WITH PARTIAL RELIEF. PLAN FOR POSSIBLE DC TOMORROW. WILL CONTINUE TO MONITOR FOR CHANGES AND FOLLOW POC.
[2021-02-15 19:39] VITALS: BP 147/59
[2021-02-16] VITALS (7 sets, daily range): BP systolic 122–152; BP diastolic 47–56
[2021-02-16 05:37] LABS: CALCIUM 8.8 mg/dL (8.5-10.1); CREATININE 1.3 mg/dL (0.6-1.0); POTASSIUM 4.3 mmol/L (3.5-5.1)
[2021-02-16 05:58] LABS: HEMATOCRIT 33.4 % (37.0-47.0); HEMOGLOBIN 10.6 gm/dL (12.0-15.0); MCH 27.9 pg (26.0-34.0); MCHC 31.8 g/dL (28.0-37.0); MCV 87.7 fL (80.0-100.0); RBC 3.81 mil/uL (4.20-5.00); RDW 16.4 % (10.5-14.5); WBC 5.8 thou/uL (4.0-11.0)
--- NOTE | 2021-02-16 09:22 | CATHLAB ---
Former[facility] [place] [address] INVASIVE PROCEDURE REPORT Name: PROSPER ANGLIN Room #: 211-P ADM IN M.R.#: [id number] Admission: 02/13/21 Attend Phys: Lorenzo Muse MD Discharge: Date of : 62 Report #: [id number] THIS REPORT FOR: cc: Sloan Flores James L. DO Mancuso, Gerald M. MD [facility] ~ APPROVED REPORT Study performed: 02/14/2021 16:25:47 Patient Details Patient Status: In-Patient Room #: 211 The patient is a 60 year-old female Event Personnel Js Fraser Site Leasing Agent;, Gracia Mulligan RTR Nancy Blakely Wes RN Partnoy, Nancy, RTR, PRINCIPAL TECHNICAL WRITER, Monitor Procedures Performed Art Access - R femoral artery* Partha Access - R femoral vein Right and Left Heart Cath w/or w/o Coronarie [id number] [facility] Renal Bilateral Peripheral Angiography [id number] CVRENALBIL Hemostasis w/ Mynx Hemostasis with Manual pressure Indication Dyspnea, Chest pain Procedure Narrative The Right Groin^ was infiltrated with 1% Lidocaine subcutaneous anesthesia. A 6F Bentley sheath was inserted into the RFA. Coronary angiography was performed using coronary diagnostic catheters. The right coronary system was accessed and visualized with a JR4 catheter. The left coronary system was accessed and visualized with a JL4 catheter. The left ventricle was accessed and visualized with a Pigtail catheter. Left ventricular/Aortic Valve gradient assessed via catheter pullback. Closure device was deployed with a 6 Fr 6/7F MynxGrip. Hemostasis was obtained with manual pressure following sheath removal without any complications. The patient tolerated the procedure well and there were no complications associated with the procedure. There was no hematoma. Intraoperative Conscious Sedation Sedation start time: 16:47 Case end Time: [facility] [place] [address] INVASIVE PROCEDURE REPORT Name: PROSPER ANGLIN AIDA Room #: 211-P [facility] IN ..#: [id number] Admission: 02/13/21 Attend Phys: Lorenzo Muse MD Discharge: Date of : 62 Report #: [id number] 17:33 Fluoro Time: 4.17 minutes Dose: DAP 4293.80 cGycm2 451 mGy Contrast Type and Amount: Visipaque 65 ml Hemodynamics The right atrial mean pressure is 24 mmHg. The right ventricular pressure is 58/17 mmHg. The pulmonary artery pressure is 66/20 mmHg with a mean of 41 mmHg. The mean pulmonary capillary wedge pressure is 34 mmHg. The aortic pressure is 157/63 mmHg with a mean of 102 mmHg. The left ventricular pressure is 157/22 mmHg with a mean of mmHg. The left ventricular end diastolic pressure is 45 mmHg. The cardiac output using thermo method is 6.05 L/min. The cardiac index using thermo method is 3.48 L/min/m2. Conclusion #1. Successful right heart catheterization with cardiac output by thermodilution. See above hemodynamics. #2 left main with mild disease giving rise to LAD and circumflex. #3 the LAD is moderate disease proximally 30 to 40% irregularity 40 to 50% mid vessel extends around the apex. #4 circumflex OM nondominant with mild disease. #5 a ramus intermedius which is small in size mildly diseased. #6 anatomically dominant right coronary artery proximal calcification prior mid vessel stent widely patent. 3040% proximal disease mild diffuse disease distally in the PDA and EUGENE #7 selective injection of bilateral renal artery stool supplied to the left with mild disease a single right renal artery with 20 to 30% ostial disease Recommendations and plan: Continue aggressive risk factor modification. Needs aggressive diuresis with significant elevation in pulmonary pressures pulmonary capillary wedge pressure. IV Lasix has been instituted to the CCU. <ELECTRONICALLY SIGNED> By: Js Fraser MD, FACC 02/16/21921 1 1 Js Fraser MD, FACC /INF
[2021-02-16] MEDS ORDERED: BAYER CHEWABLE81 MG PO (13:04)
[2021-02-16] MEDS ORDERED: DEMADEX20 MG PO (13:04)
[2021-02-16] MEDS ORDERED: OXYGEN MISCELL (14:13)
--- NOTE | 2021-02-16 14:46 | NUR ---
patient to discharge home today with need for home oxygen. Verified address. Arranged with [facility] office. phone number in dc summary. Obtained prior auth from medicaid approval for 12 months.
--- NOTE | 2021-02-16 16:04 | NUR ---
ASSUMED CARE OF PT AT SHIFT CHANGE. ASSESSMENTS CHARTED. MEDS GIVEN PER JAN. PT A&OX4, C/O PAIN TREATED WITH IV MEDS. DISCHARGE ORDERS AND INSTRUCTIONS COMPELTE. O2 PROVIDED FOR RIDE HOME. IV AND TELE DC'D. NURSING STAFF TOOK PT TO MAIN ENTRANCE VIA WHEELCHAIR TO WAITING IN CAR.
== END 2021-02-16 15:45 | disposition home or self-care (01) | DRG 286 ==
LOC: 2N 17:27
PROVIDERS: Nurse Practitioner Adult Health; Nurse Practitioner Family; ADMIT Hospitalist; ATTEND Hospitalist
PROC: B215YZZ Fluoroscopy of Left Heart using Other Contrast (ICD-10-PCS; principal; 2021-02-14)
PROC: 4A023N8 Measurement of Cardiac Sampling and Pressure, Bilateral, Percutaneous Approach (ICD-10-PCS; principal; 2021-02-14)
PROC: B211YZZ Fluoroscopy of Multiple Coronary Arteries using Other Contrast (ICD-10-PCS; principal; 2021-02-14)
DX: I25.110 Atherosclerotic heart disease of native coronary artery with unstable angina pectoris (principal); J96.21 Acute and chronic respiratory failure with hypoxia; N17.9 Acute kidney failure, unspecified; Z95.5 Presence of coronary angioplasty implant and graft; E78.5 Hyperlipidemia, unspecified; J44.9 Chronic obstructive pulmonary disease, unspecified; F41.9 Anxiety disorder, unspecified; J45.909 Unspecified asthma, uncomplicated; K21.9 Gastro-esophageal reflux disease without esophagitis; M54.2 Cervicalgia; G89.29 Other chronic pain; F17.210 Nicotine dependence, cigarettes, uncomplicated; M79.7 Fibromyalgia; E78.00 Pure hypercholesterolemia, unspecified; N18.9 Chronic kidney disease, unspecified; I12.9 Hypertensive chronic kidney disease with stage 1 through stage 4 chronic kidney disease, or unspecified chronic kidney disease; D64.9 Anemia, unspecified; Z88.8 Allergy status to other drugs, medicaments and biological substances; Z90.710 Acquired absence of both cervix and uterus; I25.2 Old myocardial infarction; Z71.6 Tobacco abuse counseling; Z79.82 Long term (current) use of aspirin; Z79.899 Other long term (current) drug therapy; Z80.1 Family history of malignant neoplasm of trachea, bronchus and lung; Z82.49 Family history of ischemic heart disease and other diseases of the circulatory system
CPT/HCPCS: 10081